=== PATIENT | female | born 1950 | race Caucasian/White ===

== ENCOUNTER 2024-03-30 18:57 | Emergency (ER) | payer MEDICARE, BC, SELFPAY ==
--- NOTE | 2024-03-30 19:05 | ED.GENADULT ---
HPI - General Adult General Chief complaint: Back Injury/Pain <Mayco Coats MD - Last Filed: 03/30/24 19:11> Stated complaint: Back pain <Mayco Coats MD - Last Filed: 03/30/24 19:11> Time Seen by Provider: 03/30/24 19:05 <Mayco Coats MD - Last Filed: 03/30/24 19:11> History of Present Illness HPI narrative: Patient is 73-year-old woman who approximately a month ago had fusion of her SI. She has a distant history of lumbar fusion. She has been recovering well but has had progressive pain in her lumbar spine over the last several days with severe worsening in last 24 hours. She may have had a syncopal event earlier today which occurred while she was in a chair. She has also become incontinent of urine in the last 12 hours. She reported these symptoms to a family member who was on the rescue squad. In [place]. She was brought in by van in on a backboard. She is having 10/10 pain in her low lumbar spine. She has no fevers no chills no bowel or bladder symptoms other than the incontinence. No other related symptoms. Patient has no pain above her low lumbar region. The pain is in the midline. <Mayco Coats MD - Last Filed: 03/30/24 19:11> Related Data Home medications: Home Medications ?Medication ?Instructions ?Recorded ?Confirmed alendronate 70 mg tablet (Fosamax) 70 mg PO QWEEK 03/30/24 03/30/24 <Mayco Coats MD - Last Filed: 03/30/24 19:11> Allergies/adverse reactions: Allergies Allergy/AdvReac Type Severity Reaction Status Date / Time No Known Drug Allergies Allergy Verified 03/30/24 19:06 <Mayco Coats MD - Last Filed: 03/30/24 19:11> Review of Systems Status of ROS: Reports: 10 or more systems reviewed and unremarkable except as noted in History and below <Mayco Coats MD - Last Filed: 03/30/24 19:11> PFSH PFSH Social History: Social History Smoking Status: Never smoker Do you use any of these nicotine containing products: None Second hand tobacco smoke exposure: No How often do you have a drink containing alcohol: never How often do you have six or more drinks on one occasion: Never AUDIT-C Alcohol total score: 0 Non-prescribed substance use: denies use service: No <Mayco Coats MD - Last Filed: 03/30/24 19:11> Exam Narrative: Exam Narrative: EXAM GENERAL: Patient appears acutely uncomfortable. EYES: No scleral icterus. LYMPH: No supraclavicular or cervical lymphadenopathy. SKIN: Visible skin seen during exam normal or with benign process only. EXT: No dependent lower extremity pedal edema. HEART: Regular rate and rhythm with no murmurs, rubs, or gallops. LUNGS: Clear to auscultation bilaterally with no crackles or wheezes. ABD: Soft, non tender, non distended. PSYCH: Good eye contact, speech is not pressured. Neurologic cranial nerves 2-12 grossly intact. Back exam shows well-healed incisions no pain to palpation some rigidity with range of motion. <Mayco Coats MD - Last Filed: 03/30/24 19:11> Const: Vital Signs, click to edit/add: Vital Signs - 24 hr 03/30/24 19:06 03/30/24 22:01 03/30/24 22:01 Temperature 98.6 F Pulse Rate [Pulse Oximeter] 87 78 Respiratory Rate 22 16 Blood Pressure [Ri ght Upper Arm] 134/67 118/64 Pulse Oximetry 97 99 Oxygen Delivery Me thod Room Air Room Air 03/31/24 02:10 Temperature 98.5 F Pulse Rate [Pulse Oximeter] 75 Respiratory Rate 16 Blood Pressure [Ri ght Upper Arm] 129/66 Pulse Oximetry 98 Oxygen Delivery Me thod Room Air <Mayco Coats MD - Last Filed: 03/30/24 19:11> Vital Signs, click to edit/add: Vital Signs - 24 hr 03/30/24 19:06 03/30/24 22:01 03/30/24 22:01 Temperature 98.6 F Pulse Rate [Pulse Oximeter] 87 78 Respiratory Rate 22 16 Blood Pressure [Ri ght Upper Arm] 134/67 118/64 Pulse Oximetry 97 99 Oxygen Delivery Me thod Room Air Room Air 03/31/24 02:10 Temperature 98.5 F Pulse Rate [Pulse Oximeter] 75 Respiratory Rate 16 Blood Pressure [Ri ght Upper Arm] 129/66 Pulse Oximetry 98 Oxygen Delivery Me thod Room Air <Emily Fernández MD - Last Filed: 03/31/24 00:54> Vital Signs, click to edit/add: Vital Signs - 24 hr 03/30/24 19:06 03/30/24 22:01 03/30/24 22:01 Temperature 98.6 F Pulse Rate [Pulse Oximeter] 87 78 Respiratory Rate 22 16 Blood Pressure [Ri ght Upper Arm] 134/67 118/64 Pulse Oximetry 97 99 Oxygen Delivery Me thod Room Air Room Air 03/31/24 02:10 Temperature 98.5 F Pulse Rate [Pulse Oximeter] 75 Respiratory Rate 16 Blood Pressure [Ri ght Upper Arm] 129/66 Pulse Oximetry 98 Oxygen Delivery Me thod Room Air <Darya Euceda MD - Last Filed: 03/31/24 08:02> Course Course ED Course: Patient seen and examined. We did examine her on the long board and log rolled her safely on to her back. This time will begin evaluation with lumbar x-rays and Toradol plus Ativan. Because of the syncope I will obtain CT of the head EKG troponin CBC basic metabolic panel D-dimer. <Mayco Coats MD - Last Filed: 03/30/24 19:11> Patient seen and examined. We did examine her on the long board and log rolled her safely on to her back. This time will begin evaluation with lumbar x-rays and Toradol plus Ativan. Because of the syncope I will obtain CT of the head EKG troponin CBC basic metabolic panel D-dimer. I was asked follow-up on the imaging and lab work of this patient. Head CT was unremarkable. Lumbar x-ray did not show any acute findings that were concerning. Unfortunately, D-dimer was elevated. Therefore we did proceed with a chest CT as well as a lumbar spine CT given the amount of discomfort she was in. I did go in to discuss these examinations with the patient who was much more comfortable, lying in bed. She told me that she did have urinary incontinence x1 earlier today when she had a significant spasm of pain. She states that before and after she has been controlling urine and bowels without difficulty. Her CBC shows a slightly elevated white count at 12.4 with 85.2% neutrophils. Again, D-dimer was elevated at 1.4. Normal chemistries. Normal LFTs. Urinalysis was normal. Lumbar CT did not show any evidence of any infection or postoperative complication. She does have multiple herniated discs which according to the patient are not new. Chest CT did not show any evidence of PE. Linear opacities noted, patient is without cough, shortness of breath or fevers. I do not think that this represents infection at this time. Discussed findings with the patient who was relieved. Her is quite concerned that he cannot take care of her at home. Patient is barely able to sit up in bed without assistance. At this time we discussed that we do not have any hospital beds. Patient does not feel safe going home without proper care of her who does not feel comfortable taking care of her. Therefore at this time we will continue pain management in the emergency department as there are no hospital beds available. Plan for discharge sometime tonight or in the morning. Care transferred to oncoming physician. <Emily Fernández MD - Last Filed: 03/31/24 00:54> Reevaluation(s) Time of Reevaluation #1: 04:53 <Darya Euceda MD - Last Filed: 03/31/24 08:02> Reevaluation #1: Patient was given 10 mg of oral oxycodone after insufficient response to hydrocodone. With this, she is able to get up out of bed and is able to ambulate with a walker. She is a little weak in the legs but is safe. She can ambulate about 15 ft before she feels like she needs to get back to the bed. She promises that she will contact her surgical team a tomorrow. Her was updated. She is not interested in going to a halfway at this time per the nursing team. Will be discharged with oxycodone. Ten tablets must last until she can get in to see her surgical team. Extensive workup including CTs of the chest, head, lumbar spine are reviewed. Clarification that her loss of urine and incontinence was because she was having a back spasm and could not get to the bathroom in time. There was no instance where she had no sensation to void or spontaneous voiding. <Darya Euceda MD - Last Filed: 03/31/24 08:02> Time of Reevaluation #2: 07:45 <Darya Euceda MD - Last Filed: 03/31/24 08:02> Reevaluation #2: Ultimately, did agree to take patient home with the oxycodone that was given. Was assisted into the car by staff. <Darya Euceda MD - Last Filed: 03/31/24 08:02> Vital Signs Vital signs: Initial Vital Signs Temperature 98.6 F 03/30/24 19:06 Temperature Source Temporal Artery Scan 03/30/24 19:06 Pulse Rate 87 03/30/24 19:06 Respiratory Rate 22 03/30/24 19:06 Blood Pressure 134/67 03/30/24 19:06 Blood Pressure Mean 89 03/30/24 19:06 Blood Pressure Position Supine 03/30/24 19:06 Pulse Oximetry 97 03/30/24 19:06 Oxygen Delivery Method Room Air 03/30/24 19:06 Vital Signs Temperature 98.6 F 03/30/24 19:06 Pulse Rate 87 03/30/24 19:06 Respiratory Rate 22 03/30/24 19:06 Blood Pressure 134/67 03/30/24 19:06 Pulse Oximetry 97 03/30/24 19:06 Oxygen Delivery Method Room Air 03/30/24 19:06 Temperature 98.5 F 03/31/24 02:10 Pulse Rate 75 03/31/24 02:10 Respiratory Rate 16 03/31/24 02:10 Blood Pressure 129/66 03/31/24 02:10 Pulse Oximetry 98 03/31/24 02:10 Oxygen Delivery Method Room Air 03/31/24 02:10 <Mayco Coats MD - Last Filed: 03/30/24 19:11> Initial Vital Signs Temperature 98.6 F 03/30/24 19:06 Temperature Source Temporal Artery Scan 03/30/24 19:06 Pulse Rate 87 03/30/24 19:06 Respiratory Rate 22 03/30/24 19:06 Blood Pressure 134/67 03/30/24 19:06 Blood Pressure Mean 89 03/30/24 19:06 Blood Pressure Position Supine 03/30/24 19:06 Pulse Oximetry 97 03/30/24 19:06 Oxygen Delivery Method Room Air 03/30/24 19:06 Vital Signs Temperature 98.6 F 03/30/24 19:06 Pulse Rate 87 03/30/24 19:06 Respiratory Rate 22 03/30/24 19:06 Blood Pressure 134/67 03/30/24 19:06 Pulse Oximetry 97 03/30/24 19:06 Oxygen Delivery Method Room Air 03/30/24 19:06 Temperature 98.5 F 03/31/24 02:10 Pulse Rate 75 03/31/24 02:10 Respiratory Rate 16 03/31/24 02:10 Blood Pressure 129/66 03/31/24 02:10 Pulse Oximetry 98 03/31/24 02:10 Oxygen Delivery Method Room Air 03/31/24 02:10 <Emily Fernández MD - Last Filed: 03/31/24 00:54> Initial Vital Signs Temperature 98.6 F 03/30/24 19:06 Temperature Source Temporal Artery Scan 03/30/24 19:06 Pulse Rate 87 03/30/24 19:06 Respiratory Rate 22 03/30/24 19:06 Blood Pressure 134/67 03/30/24 19:06 Blood Pressure Mean 89 03/30/24 19:06 Blood Pressure Position Supine 03/30/24 19:06 Pulse Oximetry 97 03/30/24 19:06 Oxygen Delivery Method Room Air 03/30/24 19:06 Vital Signs Temperature 98.6 F 03/30/24 19:06 Pulse Rate 87 03/30/24 19:06 Respiratory Rate 22 03/30/24 19:06 Blood Pressure 134/67 03/30/24 19:06 Pulse Oximetry 97 03/30/24 19:06 Oxygen Delivery Method Room Air 03/30/24 19:06 Temperature 98.5 F 03/31/24 02:10 Pulse Rate 75 03/31/24 02:10 Respiratory Rate 16 03/31/24 02:10 Blood Pressure 129/66 03/31/24 02:10 Pulse Oximetry 98 03/31/24 02:10 Oxygen Delivery Method Room Air 03/31/24 02:10 <Darya Euceda MD - Last Filed: 03/31/24 08:02> Medications Administered Medications: Generic Name Dose Route Start Last Admin Trade Name Freq PRN Reason Stop Dose Admin Hydrocodone Bitart/Acetaminophen 1 tab 03/31/24 00:30 03/31/24 00:55 Hydrocodone-Acetamin 5-325 Mg 1 Tab PO 1 tab Q6H PRN Administration Discontinued Medications Generic Name Dose Route Start Last Admin Trade Name Freq PRN Reason Stop Dose Admin Ketorolac Tromethamine 30 mg 03/30/24 19:12 03/30/24 19:35 Ketorolac 30 Mg/Ml Inj IVP 03/30/24 19:13 30 mg ONCE ONE Administration Lorazepam 1 mg 03/30/24 19:12 03/30/24 19:38 Lorazepam 2 Mg/Ml Inj IV 03/30/24 19:13 1 mg ONCE ONE Administration Oxycodone HCl 10 mg 03/31/24 02:19 03/31/24 02:24 Oxycodone 5 Mg Tablet PO 03/31/24 02:20 10 mg ONCE ONE Administration <Mayco Coats MD - Last Filed: 03/30/24 19:11> Generic Name Dose Route Start Last Admin Trade Name Freq PRN Reason Stop Dose Admin Hydrocodone Bitart/Acetaminophen 1 tab 03/31/24 00:30 03/31/24 00:55 Hydrocodone-Acetamin 5-325 Mg 1 Tab PO 1 tab Q6H PRN Administration Discontinued Medications Generic Name Dose Route Start Last Admin Trade Name Freq PRN Reason Stop Dose Admin Ketorolac Tromethamine 30 mg 03/30/24 19:12 03/30/24 19:35 Ketorolac 30 Mg/Ml Inj IVP 03/30/24 19:13 30 mg ONCE ONE Administration Lorazepam 1 mg 03/30/24 19:12 03/30/24 19:38 Lorazepam 2 Mg/Ml Inj IV 03/30/24 19:13 1 mg ONCE ONE Administration Oxycodone HCl 10 mg 03/31/24 02:19 03/31/24 02:24 Oxycodone 5 Mg Tablet PO 03/31/24 02:20 10 mg ONCE ONE Administration <Emily Fernández MD - Last Filed: 03/31/24 00:54> Generic Name Dose Route Start Last Admin Trade Name Freq PRN Reason Stop Dose Admin Hydrocodone Bitart/Acetaminophen 1 tab 03/31/24 00:30 03/31/24 00:55 Hydrocodone-Acetamin 5-325 Mg 1 Tab PO 1 tab Q6H PRN Administration Discontinued Medications Generic Name Dose Route Start Last Admin Trade Name Freq PRN Reason Stop Dose Admin Ketorolac Tromethamine 30 mg 03/30/24 19:12 03/30/24 19:35 Ketorolac 30 Mg/Ml Inj IVP 03/30/24 19:13 30 mg ONCE ONE Administration Lorazepam 1 mg 03/30/24 19:12 03/30/24 19:38 Lorazepam 2 Mg/Ml Inj IV 03/30/24 19:13 1 mg ONCE ONE Administration Oxycodone HCl 10 mg 03/31/24 02:19 03/31/24 02:24 Oxycodone 5 Mg Tablet PO 03/31/24 02:20 10 mg ONCE ONE Administration <Darya Euceda MD - Last Filed: 03/31/24 08:02> Medical Decision Making Lab Data Labs: Lab Results 03/30/24 03/30/24 Range/Units 19:30 21:00 WBC 12.42 H (4.50-11.00) K/uL RBC 4.46 (4.00-5.20) m/uL Hgb 13.2 (12.0-16.0) gm/dL Hct 41.2 (33.0-51.0) % MCV 92 (80-100) fL MCH 30 (26-34) pg MCHC 32 (32-36) gm/dL RDW Coeff of Rogelio 13.3 (11.5-15.5) % Plt Count 243 (140-440) K/uL Neut % (Auto) 85.2 H (42.0-72.0) % Lymph % (Auto) 7.9 L (20-44) % [place] % (Auto) 6.1 (0.0-11.0) % Eos % (Auto) 0.4 (0.0-7.0) % Baso % (Auto) 0.2 (0.0-3.0) % Neut # (Auto) 10.60 H (1.7-7.0) K/uL Lymph # (Auto) 1.00 (0.90-2.90) K/uL [place] # (Auto) 0.80 (0.00-0.90) K/UL Eos # (Auto) 0.00 (0.00-0.50) K/uL Baso # (Auto) 0.00 (0.00-0.30) K/uL Abs Immat Gran (auto) 0.00 (0.00-0.30) K/uL Imm/Tot Granulo (auto) 0.2 % D-Dimer Quant (PE/DVT) 1.84 H (0.00-0.50) ug/ml Sodium 138 (135-149) mmol/L Potassium 4.0 (3.6-5.1) mmol/L Chloride 105 (96-114) mmol/L Carbon Dioxide 27 (20-32) mmol/L Anion Gap 6 L (7-15) mEq/L BUN 14 (7-30) mg/dL Creatinine 0.8 (0.5-1.5) mg/dL Estimated Creat Clear 42.41 Estimated GFR 77 ml/min Glucose 105 (60-115) mg/dL Calcium 9.5 (8.4-10.6) mg/dL Total Bilirubin 0.8 (0.1-1.5) mg/dL AST 22 (12-35) U/L ALT 18 (4-35) U/L Alkaline Phosphatase 95 (40-150) U/L Total Protein 7.1 (6.0-8.3) g/dL Albumin 4.4 (3.3-5.0) g/dL Urine Color Yellow (Yellow) Urine Appearance Clear (Clear) Urine pH 7.0 (5.0-8.5) Ur Specific [place] 1.015 (1.000-1.030) Urine Protein Negative (Negative) Urine Glucose (UA) Negative (Negative) Urine Ketones Negative (Negative) Urine Blood Negative (Negative) Urine Nitrite Negative (Negative) Urine Bilirubin Negative (Negative) Urine Urobilinogen 0.2 (0.2-1.0) Ur Leukocyte Esterase Negative (Negative) <Mayco Coats MD - Last Filed: 03/30/24 19:11> Lab Results 03/30/24 03/30/24 Range/Units 19:30 21:00 WBC 12.42 H (4.50-11.00) K/uL RBC 4.46 (4.00-5.20) m/uL Hgb 13.2 (12.0-16.0) gm/dL Hct 41.2 (33.0-51.0) % MCV 92 (80-100) fL MCH 30 (26-34) pg MCHC 32 (32-36) gm/dL RDW Coeff of Rogelio 13.3 (11.5-15.5) % Plt Count 243 (140-440) K/uL Neut % (Auto) 85.2 H (42.0-72.0) % Lymph % (Auto) 7.9 L (20-44) % [place] % (Auto) 6.1 (0.0-11.0) % Eos % (Auto) 0.4 (0.0-7.0) % Baso % (Auto) 0.2 (0.0-3.0) % Neut # (Auto) 10.60 H (1.7-7.0) K/uL Lymph # (Auto) 1.00 (0.90-2.90) K/uL [place] # (Auto) 0.80 (0.00-0.90) K/UL Eos # (Auto) 0.00 (0.00-0.50) K/uL Baso # (Auto) 0.00 (0.00-0.30) K/uL Abs Immat Gran (auto) 0.00 (0.00-0.30) K/uL Imm/Tot Granulo (auto) 0.2 % D-Dimer Quant (PE/DVT) 1.84 H (0.00-0.50) ug/ml Sodium 138 (135-149) mmol/L Potassium 4.0 (3.6-5.1) mmol/L Chloride 105 (96-114) mmol/L Carbon Dioxide 27 (20-32) mmol/L Anion Gap 6 L (7-15) mEq/L BUN 14 (7-30) mg/dL Creatinine 0.8 (0.5-1.5) mg/dL Estimated Creat Clear 42.41 Estimated GFR 77 ml/min Glucose 105 (60-115) mg/dL Calcium 9.5 (8.4-10.6) mg/dL Total Bilirubin 0.8 (0.1-1.5) mg/dL AST 22 (12-35) U/L ALT 18 (4-35) U/L Alkaline Phosphatase 95 (40-150) U/L Total Protein 7.1 (6.0-8.3) g/dL Albumin 4.4 (3.3-5.0) g/dL Urine Color Yellow (Yellow) Urine Appearance Clear (Clear) Urine pH 7.0 (5.0-8.5) Ur Specific [place] 1.015 (1.000-1.030) Urine Protein Negative (Negative) Urine Glucose (UA) Negative (Negative) Urine Ketones Negative (Negative) Urine Blood Negative (Negative) Urine Nitrite Negative (Negative) Urine Bilirubin Negative (Negative) Urine Urobilinogen 0.2 (0.2-1.0) Ur Leukocyte Esterase Negative (Negative) <Emily Fernández MD - Last Filed: 03/31/24 00:54> Lab Results 03/30/24 03/30/24 Range/Units 19:30 21:00 WBC 12.42 H (4.50-11.00) K/uL RBC 4.46 (4.00-5.20) m/uL Hgb 13.2 (12.0-16.0) gm/dL Hct 41.2 (33.0-51.0) % MCV 92 (80-100) fL MCH 30 (26-34) pg MCHC 32 (32-36) gm/dL RDW Coeff of Rogelio 13.3 (11.5-15.5) % Plt Count 243 (140-440) K/uL Neut % (Auto) 85.2 H (42.0-72.0) % Lymph % (Auto) 7.9 L (20-44) % [place] % (Auto) 6.1 (0.0-11.0) % Eos % (Auto) 0.4 (0.0-7.0) % Baso % (Auto) 0.2 (0.0-3.0) % Neut # (Auto) 10.60 H (1.7-7.0) K/uL Lymph # (Auto) 1.00 (0.90-2.90) K/uL [place] # (Auto) 0.80 (0.00-0.90) K/UL Eos # (Auto) 0.00 (0.00-0.50) K/uL Baso # (Auto) 0.00 (0.00-0.30) K/uL Abs Immat Gran (auto) 0.00 (0.00-0.30) K/uL Imm/Tot Granulo (auto) 0.2 % D-Dimer Quant (PE/DVT) 1.84 H (0.00-0.50) ug/ml Sodium 138 (135-149) mmol/L Potassium 4.0 (3.6-5.1) mmol/L Chloride 105 (96-114) mmol/L Carbon Dioxide 27 (20-32) mmol/L Anion Gap 6 L (7-15) mEq/L BUN 14 (7-30) mg/dL Creatinine 0.8 (0.5-1.5) mg/dL Estimated Creat Clear 42.41 Estimated GFR 77 ml/min Glucose 105 (60-115) mg/dL Calcium 9.5 (8.4-10.6) mg/dL Total Bilirubin 0.8 (0.1-1.5) mg/dL AST 22 (12-35) U/L ALT 18 (4-35) U/L Alkaline Phosphatase 95 (40-150) U/L Total Protein 7.1 (6.0-8.3) g/dL Albumin 4.4 (3.3-5.0) g/dL Urine Color Yellow (Yellow) Urine Appearance Clear (Clear) Urine pH 7.0 (5.0-8.5) Ur Specific [place] 1.015 (1.000-1.030) Urine Protein Negative (Negative) Urine Glucose (UA) Negative (Negative) Urine Ketones Negative (Negative) Urine Blood Negative (Negative) Urine Nitrite Negative (Negative) Urine Bilirubin Negative (Negative) Urine Urobilinogen 0.2 (0.2-1.0) Ur Leukocyte Esterase Negative (Negative) <Darya Euceda MD - Last Filed: 03/31/24 08:02> Imaging Data CT scan - head: Attestation: I have reviewed the pertinent imaging results. <Emily Fernández MD - Last Filed: 03/31/24 00:54> Radiologist's impression: CT of the head without contrast. Coronal and sagittal reformats. Bone and soft tissue windows. Comparison: No prior studies available for comparison at this institution. Findings: No acute intracranial hemorrhage or extra-axial collection. No evidence of acute cortical infarction. No mass effect or midline shift. Normal cerebral volume. The ventricles are normal in size, shape and contour. There is normal higgins and white matter differentiation. The orbital contents are normal. No calvarial fractures. No lytic or sclerotic osseous lesions within the calvarium or skull base. Scalp and other imaged soft tissue structures are normal. Mastoid air cells are clear. Paranasal sinuses are well aerated. Right temporomandibular joint degenerative changes. Impression: No acute intracranial abnormality. <Emily Fernández MD - Last Filed: 03/31/24 00:54> Lumbar spine CT: Attestation: I have reviewed the pertinent imaging results. <Emily Fernández MD - Last Filed: 03/31/24 00:54> Radiologist's impression: Postcontrast CT lumbar spine axial CT of the lumbar spine with coronal and sagittal reformats are provided following administration of 95 cc Isovue 370 IV contrast Comparison: Lumbar radiographs 03/30/2024 Findings: Five lumbar-type vertebral bodies. Postoperative changes of bilateral pedicle screw and erick fixation at L5-S1 interbody cage placement at L5-S1. Right sacroiliac joint fixation. Incidental Tarlov cysts results in remodeling of the S2 neural foramen bilaterally. No aggressive osseous lesions. Anterior osteophytic spurring at L2-3 through L4-5. Severe interspace narrowing at L3 to at L2-3 and moderate disc space narrowing at L4-5. No fractures. Cholecystectomy clips. Atherosclerotic calcifications in abdominal aorta. Nonobstructive right renal calculus. T12-L1: No significant spinal canal stenosis or neural foramen narrowing. L1-2: Moderate interspace narrowing. Diffuse disc bulge and endplate osteophytic spurring. Moderate right and mild left facet arthrosis. Mild spinal canal narrowing. No neural foramen narrowing. L2-3: Severe interspace narrowing. Diffuse disc bulge and endplate osteophytic spurring. Moderate facet arthrosis and ligamentum flavum buckling. Mild to moderate spinal canal stenosis. Mild neural foramen narrowing bilaterally. L3-4: Severe interspace narrowing. Diffuse disc bulge and endplate osteophytic ridging. Moderate facet arthrosis and ligamentum flavum buckling. Mild to moderate spinal canal stenosis. Moderate neural foraminal narrowing bilaterally. L4-5: Diffuse disc bulge, endplate osteophytic spurring and moderate facet arthrosis. Moderate spinal canal stenosis. Moderate left and no right neural foramen narrowing. Significant artifact from metallic hardware. L5-S1: Postoperative changes. No significant spinal canal stenosis or neural foraminal narrowing allowing for artifact due to metallic hardware. Impression: 1. Postoperative changes of bilateral pedicle screw and erick fixation at L5-S1 interbody cage placement at L5-S1. Right sacroiliac joint fixation. 2. Incidental Tarlov cysts results in remodeling of the S2 neural foramen bilaterally. 3. [id number] spinal canal narrowing at L2-3 and L3-4. Moderate neural foramina narrowing bilaterally at L3-4. 4. At L4-5 there is moderate spinal canal narrowing and moderate left neural foraminal narrowing. Significant artifact from metallic hardware inferior to the disc space. 5. At L5-S1, significant artifact from metallic hardware. No significant bony spinal canal stenosis or neural foramen narrowing. <Emily Fernández MD - Last Filed: 03/31/24 00:54> CT scan - chest: Attestation: I have reviewed the pertinent imaging results. <Emily Fernández MD - Last Filed: 03/31/24 00:54> Radiologist's impression: CT chest PE was acquired with 95 cc Omnipaque 370 IV contrast. COMPARISON: None. FINDINGS: Heart and vasculature: Contrast opacification of the pulmonary arterial tree is adequate. No sign of pulmonary embolism. Heart size is normal. Thoracic aorta and pulmonary artery are normal in caliber. Lungs and pleura: Bibasilar linear opacities. No pleural effusion or pneumothorax. No suspicious pulmonary nodule or mass. Lymph nodes/mediastinum: No suspicious lymphadenopathy. Chest wall: No masses. Upper abdomen: No acute or suspicious abnormality. Bones: No acute or suspicious abnormality. IMPRESSION: 1. No pulmonary embolism identified. 2. Bibasilar linear opacities, likely reflecting atelectasis or scarring, however developing infectious process is not excluded in the appropriate clinical context. <Emily Fernández MD - Last Filed: 03/31/24 00:54> Discharge Plan Discharge Clinical Impression: Lumbar back pain <Mayco Coats MD - Last Filed: 03/30/24 19:11> Additional Instructions: You need to follow-up with your spine team to discuss appropriate pain management. Continue using Tylenol 1000 mg every 6 hours and or ibuprofen 600 mg every 6 hours. I will give you a very limited supply of oxycodone to get you through until Monday morning when you are to follow-up further with your spine team. <Mayco Coats MD - Last Filed: 03/30/24 19:11> Activity Level: Use Walker <Mayco Coats MD - Last Filed: 03/30/24 19:11> Use Walker <Emily Fernández MD - Last Filed: 03/31/24 00:54> Use Walker <Darya Euceda MD - Last Filed: 03/31/24 08:02> Prescriptions: No Action alendronate [Fosamax] 70 mg tablet 70 mg PO QWEEK <Mayco Coats MD - Last Filed: 03/30/24 19:11> Follow Up/Referrals: Provider,Not a Local [Primary Care Provider] - <Mayco Coats MD - Last Filed: 03/30/24 19:11> Stand Alone Forms: MyHealth Info Instructions <Mayco Coats MD - Last Filed: 03/30/24 19:11>
[2024-03-30 19:06] VITALS: BP 134/67; PULSE 87; RESP 22; TEMP 37; O2SAT 97; BMI 20.6
--- NOTE | 2024-03-30 19:12 | CRLHL7_ITS ---
For Patients: As a result of the Cures Act, medical imaging exams and procedure reports are released immediately into your electronic medical record. You may view this report before your referring provider. If you have questions, please contact your health care provider. INDICATION: Syncope. Recent SI joint surgery. COMPARISON: None. TECHNIQUE: Three radiographic view(s) of the lumbar spine. FINDINGS: Five lumbar vertebra. Mild levocurvature at the thoracolumbar junction. Straightening of the lumbar lordosis. No substantial lumbar listhesis. Lumbar vertebral body height is grossly preserved. Status post L5-S1 posterior instrumented lumbar fusion. No evident hardware fracture or substantial periprosthetic lucency. Status post instrumented fusion of the right sacroiliac joint. Partially imaged right total hip arthroplasty. There is diffuse osseous demineralization. There is prominent degenerative change of the lumbar spine characterized by disc height loss, osteophytosis, degenerative endplate irregularity, and facet hypertrophy. IMPRESSION: 1. Status post L5-S1 posterior instrumented fusion and instrumented fusion of the right sacroiliac joint. 2. Multilevel degenerative change of the lumbar spine. 3. Mild levocurvature at the thoracolumbar junction. Straightening of the lumbar lordosis. Dictated by Krishna Chester MD @ 03/30/2024 8:10:14 PM (Electronically Signed)
--- NOTE | 2024-03-30 19:12 | CRLHL7_ITS ---
For Patients: As a result of the Century Cures Act, medical imaging exams and procedure reports are released immediately into your electronic medical record. You may view this report before your referring provider. If you have questions, please contact your health care provider. Indication: SYNCOPE Technique: CT of the head without contrast. Coronal and sagittal reformats. Bone and soft tissue windows. Comparison: No prior studies available for comparison at this institution. Findings: No acute intracranial hemorrhage or extra-axial collection. No evidence of acute cortical infarction. No mass effect or midline shift. Normal cerebral volume. The ventricles are normal in size, shape and contour. There is normal higgins and white matter differentiation. The orbital contents are normal. No calvarial fractures. No lytic or sclerotic osseous lesions within the calvarium or skull base. Scalp and other imaged soft tissue structures are normal. Mastoid air cells are clear. Paranasal sinuses are well aerated. Right temporomandibular joint degenerative changes. Impression: No acute intracranial abnormality. Please note that all CT scans at this facility use dose modulation, iterative reconstruction, and/or weight-based dosing when appropriate to reduce radiation dose to as low as reasonably achievable. Dictated by Chuck Lama MD @ 03/30/2024 7:57:13 PM (Electronically Signed)
[2024-03-30] MEDS: KETOROLAC 30 MG/ML inj IVP (19:35)
[2024-03-30] MEDS: LORazepam 2 MG/ML inj 1 MG IV (19:38)
[2024-03-30 19:43] LABS: Basophils Percent Auto 0.2 % (0.0-3.0); Eosinophils Percent Auto 0.4 % (0.0-7.0); Hematocrit 41.2 % (33.0-51.0); Hemoglobin* 13.2 gm/dL (12.0-16.0); Immature Granulocytes Pct Auto 0.2 %; Lymphocytes Percent Auto 7.9 % (20-44); Mean Corpuscular HGB Conc 32 gm/dL (32-36); Mean Corpuscular Hemoglobin 30 pg (26-34); Mean Corpuscular Volume 92 fL (80-100); Monocytes Percent Auto 6.1 % (0.0-11.0); Neutrophils Percent Auto 85.2 % (42.0-72.0); Platelet Count* 243 K/uL (140-440); RDW Coefficient of Variation % 13.3 % (11.5-15.5); Red Blood Count 4.46 m/uL (4.00-5.20); White Blood Count* 12.42 K/uL (4.50-11.00)
[2024-03-30 19:44] LABS: Slide Review Reflex No
[2024-03-30 19:54] LABS: Chloride* 105 mmol/L (96-114)
[2024-03-30 19:55] LABS: Albumin* 4.4 g/dL (3.3-5.0); Sodium* 138 mmol/L (135-149)
[2024-03-30 19:57] LABS: Creatinine* 0.8 mg/dL (0.5-1.5); Est. Creatinine Clearance* 42.41; Estimated Glomerular Filt Rate 77 ml/min
[2024-03-30 19:58] LABS: Alanine Aminotransferase* 18 U/L (4-35); Alkaline Phosphatase* 95 U/L (40-150); Anion Gap 6 mEq/L (7-15); Aspartate Amino Transferase* 22 U/L (12-35); Bilirubin Total* 0.8 mg/dL (0.1-1.5); Blood Urea Nitrogen* 14 mg/dL (7-30); Carbon Dioxide* 27 mmol/L (20-32); Glucose* 105 mg/dL (60-115); Total Protein* 7.1 g/dL (6.0-8.3)
[2024-03-30 19:59] LABS: Calcium* 9.5 mg/dL (8.4-10.6)
[2024-03-30 20:00] LABS: D Dimer Quantitative* 1.84 ug/ml (0.00-0.50)
--- NOTE | 2024-03-30 20:12 | CRLHL7_ITS ---
For Patients: As a result of the Century Cures Act, medical imaging exams and procedure reports are released immediately into your electronic medical record. You may view this report before your referring provider. If you have questions, please contact your health care provider. Indication: POST OP PAIN, RECENT BACK SURGERY ABOUT 4 WEEKS AGO Technique: Postcontrast CT lumbar spine axial CT of the lumbar spine with coronal and sagittal reformats are provided following administration of 95 cc Isovue 370 IV contrast Comparison: Lumbar radiographs 03/30/2024 Findings: Five lumbar-type vertebral bodies. Postoperative changes of bilateral pedicle screw and erick fixation at L5-S1 interbody cage placement at L5-S1. Right sacroiliac joint fixation. Incidental Tarlov cysts results in remodeling of the S2 neural foramen bilaterally. No aggressive osseous lesions. Anterior osteophytic spurring at L2-3 through L4-5. Severe interspace narrowing at L3 to at L2-3 and moderate disc space narrowing at L4-5. No fractures. Cholecystectomy clips. Atherosclerotic calcifications in abdominal aorta. Nonobstructive right renal calculus. T12-L1: No significant spinal canal stenosis or neural foramen narrowing. L1-2: Moderate interspace narrowing. Diffuse disc bulge and endplate osteophytic spurring. Moderate right and mild left facet arthrosis. Mild spinal canal narrowing. No neural foramen narrowing. L2-3: Severe interspace narrowing. Diffuse disc bulge and endplate osteophytic spurring. Moderate facet arthrosis and ligamentum flavum buckling. Mild to moderate spinal canal stenosis. Mild neural foramen narrowing bilaterally. L3-4: Severe interspace narrowing. Diffuse disc bulge and endplate osteophytic ridging. Moderate facet arthrosis and ligamentum flavum buckling. Mild to moderate spinal canal stenosis. Moderate neural foraminal narrowing bilaterally. L4-5: Diffuse disc bulge, endplate osteophytic spurring and moderate facet arthrosis. Moderate spinal canal stenosis. Moderate left and no right neural foramen narrowing. Significant artifact from metallic hardware. L5-S1: Postoperative changes. No significant spinal canal stenosis or neural foraminal narrowing allowing for artifact due to metallic hardware. Impression: 1. Postoperative changes of bilateral pedicle screw and erick fixation at L5-S1 interbody cage placement at L5-S1. Right sacroiliac joint fixation. 2. Incidental Tarlov cysts results in remodeling of the S2 neural foramen bilaterally. 3. [id number] spinal canal narrowing at L2-3 and L3-4. Moderate neural foramina narrowing bilaterally at L3-4. 4. At L4-5 there is moderate spinal canal narrowing and moderate left neural foraminal narrowing. Significant artifact from metallic hardware inferior to the disc space. 5. At L5-S1, significant artifact from metallic hardware. No significant bony spinal canal stenosis or neural foramen narrowing. Please note that all CT scans at this facility use dose modulation, iterative reconstruction, and/or weight-based dosing when appropriate to reduce radiation dose to as low as reasonably achievable. Dictated by Chuck Lama MD @ 03/30/2024 9:26:02 PM (Electronically Signed)
--- NOTE | 2024-03-30 20:13 | CRLHL7_ITS ---
For Patients: As a result of the Century Cures Act, medical imaging exams and procedure reports are released immediately into your electronic medical record. You may view this report before your referring provider. If you have questions, please contact your health care provider. INDICATION: Pulmonary embolism (PE) suspected. Syncope. TECHNIQUE: CT chest PE was acquired with 95 cc Omnipaque 370 IV contrast. COMPARISON: None. FINDINGS: Heart and vasculature: Contrast opacification of the pulmonary arterial tree is adequate. No sign of pulmonary embolism. Heart size is normal. Thoracic aorta and pulmonary artery are normal in caliber. Lungs and pleura: Bibasilar linear opacities. No pleural effusion or pneumothorax. No suspicious pulmonary nodule or mass. Lymph nodes/mediastinum: No suspicious lymphadenopathy. Chest wall: No masses. Upper abdomen: No acute or suspicious abnormality. Bones: No acute or suspicious abnormality. IMPRESSION: 1. No pulmonary embolism identified. 2. Bibasilar linear opacities, likely reflecting atelectasis or scarring, however developing infectious process is not excluded in the appropriate clinical context. Please note that all CT scans at this facility use dose modulation, iterative reconstruction, and/or weight-based dosing when appropriate to reduce radiation dose to as low as reasonably achievable. Dictated by Jonel Mendoza MD @ 03/30/2024 9:41:16 PM (Electronically Signed)
[2024-03-30 21:21] LABS: Appearance Urine Clear (Clear); Bilirubin Urine Negative (Negative); Blood Urine Negative (Negative); Color Urine Yellow (Yellow); Glucose Urine Negative (Negative); Ketones Urine Negative (Negative); Leukocyte Esterase Urine Negative (Negative); Nitrite Urine Negative (Negative); Protein Urine Negative (Negative); Specific Gravity Urine 1.015 (1.000-1.030); Urobilinogen Urine 0.2 (0.2-1.0)
[2024-03-30 22:01] VITALS: BP 118/64; PULSE 78; RESP 16; O2SAT 99
--- NOTE | 2024-03-30 22:23 | PC.NURSE ---
[address] as pt unable to stand with assist of two to use commode due to back pain/spasms.
[2024-03-31] MEDS: HYDROCODONE-ACETAMIN 5-325 MG 1 TAB PO (00:55)
[2024-03-31 02:10] VITALS: BP 129/66; PULSE 75; RESP 16; TEMP 36.9; O2SAT 98
[2024-03-31] MEDS: OXYCODONE 5 MG TABLET 10 MG PO (02:24)
--- NOTE | 2024-03-31 04:00 | PC.NURSE ---
Pt sitting up at bedside with assist of one, pt was able to ambulate approx 15 feet with SBA/walker when her legs became weak and she was scared she was going to fall. Assisted into wheelchair and pt would like to stay in wheelchair instead of transferring back to bed if she is going home.
== END 2024-03-31 07:50 | disposition home or self-care (01) ==
PROVIDERS: Internal Medicine; Emergency Provider Family Medicine; Visit Provider Family Medicine
DX: M54.50 Low back pain, unspecified (principal)
CPT/HCPCS: 36415; 70450; 71275; 72100; 72132; 80053; 81003; 85025; 85379; 93005; 96374; 96375; 99285; A9270; J1885; J2060; Q9967